=== PATIENT | female | born 1940 | race Caucasian/White ===

== ENCOUNTER → 2022-02-07 09:52 | Outpatient (CLI) | payer MEDICARE, OTHER, SELFPAY ==
--- NOTE | 2022-02-07 | PATH_ITS ---
Note [facility] Accession Number: [id number] TESTS RESULT FLAG UNITS REF RANGE LAB Clinician Provided Cytology Information No. of containers..02 Previously Prepared Cytology Slide 35 Unknown Storage/container code(s) Source: RIGHT THYROID NODULE DIAGNOSIS: RIGHT THYROID NODULE, FINE NEEDLE ASPIRATION. INCONCLUSIVE. BETHESDA CATEGORY III. ATYPIA OF UNDETERMINED SIGNIFICANCE (AUS), SEE COMMENT. COMMENT: EXAMINATION OF THE SMEARS REVEALS A HYPOCELLULAR TO MILDLY CELLULAR ASPIRATE, COMPOSED OF COLLOID AND FEW GROUPS WHERE NUCLEAR ENLARGEMENT, OVERLAPPING, PALLOR AND RARE NUCLEAR MEMBRANE IRREGULARITIES (GROOVES) ARE NOTED. INTRANUCLEAR PSEUDOINCLUSIONS ARE NOT DEFINITELY SEEN. THE RISK OF MALIGNANCY IN THE BETHESDA CATEGORY III IS 5-15%. ADDITIONAL MOLECULAR STUDIES WILL BE PERFORMED ON THE SUBMITTED RNA VIAL FOR FURTHER CHARACTERIZATION. Pathologist ICD10: 01 E04.1 Clinical history: 01 FINDINGS: Right thyroid measures 5.0 x 1.7 x 1.2 cm. Left ovary measures 4.7 x 1.0 x 1.0 cm. The isthmus is 0.3 cm jn thickness. A right inferior thyroid nodule measures 1.8 x x 1.4 cm. The nodule is solid, hypoecholq and wider than tall with smooth margins and macroscopic calcification. (TR4 Moderately Suspicious) The palpable abnormality corresponds to the left submandibular gland, which contains a heterogeneously hypoechoic solid nodule measuring 2.3 x 1.3 x 1.9 cm with vascularity present. IMPRESSION: 1.Palpable abnormality corresponds to a circumscribed heterogeneous hypoechoic mass in the left submandibular gland. Differential considerations include benign and malignant masses. Recommend further characterization with contrast-enhanced MRI or CT of the neck. 2.Moderately suspicious right Inferior thyroid nodule measuring 1.8 cm. Recommend fine needle aspiration for further evaluation. Signed out by: Kyle Wolf MD, Pathologist NPI- [id number] Performed by: Devonte Jackson, Cable Technician ([facility]) Gross description: 30 CC, PINK, CLEAR RECIEVED: IN CYTOLYT WITH 6 ALCOHOL FIXED AND 6 QUICK STAINED SLIDES ALSO 1 RNA VIAL WAS RECEIVED FOR FURTHER TESTING. /VDU 02/08/[address] [place] [address] FLAG LEGEND: L-Low Normal,H-High Normal,LL-Alert Low,HH-Alert High <-Panic Low,>-Panic High,A-Abnormal,AA-Critical Abnormal Performed at: 01 =Z [facility] [address] [place] [address], [place] [address] David Loera MD, Performed at: 01 [facility] [address] [place] [address], [place], [place] [id number] MD David Loera MD Phone: [phone]
--- NOTE | 2022-02-07 10:07 | DI.US.S_ITS ---
PROCEDURE: US FINE NEEDLE ASPIRATION INDICATIONS: Nontoxic single thyroid nodule TECHNIQUE: The indications, alternatives, benefits, risks, and complications of the procedure were explained to the patient. Written informed consent was obtained and placed in the chart. The thyroid region was examined sonographically and a site was chosen for ultrasound guided percutaneous sampling. The skin was prepared and draped in the usual fashion, and anesthetized with 1% lidocaine infiltrated from the skin down to the thyroid gland. Multiple passes were then performed, with contents emptied into an appropriate pathology specimen container. A bandage was applied to the area of access at completion of the study. COMPARISON: None. FINDINGS: Location(s) of lesion(s) sampled: Right inferior pole [place]: 25 gauge hypodermic needles. Number of passes: 6 Medications: 1% lidocaine for local anaesthesia. Complications: None. IMPRESSION: Successful ultrasound-guided thyroid nodule fine needle aspiration, with cytology results pending. Please see chart below for management recommendations based on cytology results. [facility] ReportingRecommendationsNon-diagnostic* Repeat US-guided FNA, with on-site cytology evaluation if possible. * Repeated non-diagnostic nodules without high suspicion US features: close observation vs surgical consult. * Consider surgery if nodule has high suspicion US features, grows >20% in 2 dimensions on followup, or patient has clinical risk factors for malignancy. Benign* If nodule has high suspicion US features: repeat US and FNA within 12 months. * If nodule has low to intermediate suspicion US features: repeat US at 12-24 months. If nodule grows (20% increase in at least 2 dimensions, with minimal increase of 2 mm or >50% change in volume), or development of new suspicious US features, then repeat FNA or continue followup. * If nodule has very low suspicion US features: followup US at >24 months. Atypia of undetermined significance, follicular lesion of undetermined significanceRepeat FNA, molecular testing, followup US, or surgical consult.Follicular neoplasm, suspicious for follicular neoplasmSurgical consult; also consider molecular testing. Suspicious for malignancySurgical consult.MalignantSurgical consult. Dictated by: Paulino Mcclendon M.D. on 02/08/2022 at 16:06 Approved by: Paulino Mcclendon M.D. on 02/08/2022 at 16:07
== END ==
PROVIDERS: PCP Registered Nurse; Referring Provider Registered Nurse; Visit Provider Registered Nurse
DX: E04.1 Nontoxic single thyroid nodule (principal)
CPT/HCPCS: 10005

== ENCOUNTER 2024-08-20 12:02 | Outpatient (CLI) | payer MEDICARE, OTHER, SELFPAY ==
[2024-08-20] VITALS (10 sets, daily range): BP systolic 138–163; BP diastolic 70–88; PULSE 89–99; RESP 14–20; TEMP 36.2; O2SAT 92–99
--- NOTE | 2024-08-20 | PATH_ITS ---
[facility] Accession Number: [id number] No. of containers..02 Tissue 04 Unknown Storage/container code(s) . 01 Material submitted: . PART A: bone marrow - BONE MARROW ASPIRATION PART B: bone marrow - BONE MARROW CORE . 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 - Hypercellular marrow for the age (95% due to marrow infiltration by CLL/SLL). - No increased blasts seen (less than 1%). - Iron is present, and no ring sideroblasts seen. - Mild focal increased reticulin fibrosis, focal MF1. - Chromosomal analysis test is pending. 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 - See comment. . 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 No aberrant T-cell populations identified. No increased or definite aberrant blast population identified. (see flow report for more details [phone]). -- A prior peripheral blood flow cytometry in 05/21/2024 confirmed the diagnosis of CLL/SLL with absolute count of monotypic, CD5 positive B-cells of 9.9 k/uL. 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 FISH for CLL panel shows: CLL RELATED CLONE DETECTED (62% OF NUCLEI POSITIVE FOR TRISOMY 12) SEE FULL REPORT For additional cytogenetic findings: LCLS SPECIMEN NUMBER: [id number] Correlation with pending chromosomal analysis is recommended and will be reported in addendum. TXN 08/26/2024 1252 Local . 01 Electronically signed: . Fe Palma MD, Pathologist NPI- [id number] . 01 Gross description: . A. Received in formalin with two identifiers and no site on jar, are multiple red-brown fragments and hemorrhagic material aggregating to 0.3 x 0.2 x 0.1 cm. Filtered and submtited entirely in cassette A1. B. Received in formalin with two identifiers and no site on jar, are three cortes needle cores of osseous tissue ranging from 0.3 to 0.7 cm in length by 0.2 cm in diameter. Submitted entirely in cassette B1 following decalcification in Immunocal. ([id number]) /SAQIB 08/21/2024 0946 Local . 01 Microscopic: . 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 . - PERIPHERAL BLOOD SMEAR: No accompanied peripheral smear is received. No current CBC is received or found in our system. . - BONE MARROW ASPIRATE SMEARS PREPARATION: The aspirates are cellular, specular, and adequate for morphologic examination and shows. Predominant lymphocytosis with rare hematopoietic elements. Lymphocytes are small and mature. . . - BONE MARROW ASPIRATE SMEAR MANUAL DIFFERENTIAL (200 CELLS): . Shows 98% small lymphocytes with mature clumped chromatin. 1% neutrophils, 1% eosinophils. - BONE MARROW BIOPSY AND CLOT: Adequate and shows similar findings including small size mature lymphocytes with diffuse infiltration and rare background of hematopoietic elements. Cellularity: 95% occupied by small lymphocytes (95% of marrow cellularity) Megakaryocytes are present and focally increased with unremarkable morphology. -- IMMUNOHISTOCHEMICAL STAINS ARE PERFORMED ON CLOT AND CORE BIOPSY WITH APPROPRIATE CONTROLS: The atypical lymphocytes infiltration is composed of small size B cells with scattered intermixed T cells and have CLL/SLL immunohistochemical profile, the B cells are: POSITIVE for: CD20 (weak expression), PAX-5, CD5, and LEF1. NEGATIVE for: Cyclin D1. CD3 and CD5 highlight scattered unremarkable T cells. CD34 shows no increased in blasts population <1% CD71 highlights decreased residual erythroid elements. CD15 highlights decreased residual myeloid elements. FACTORVIII highlights megakaryocytes with unremarkable morphology. - SPECIAL STAINS PERFORMED ON CLOT, AND CORE BIOPSY WITH APPROPRIATE CONTROLS: Iron special stain (clot): Present with no increased ring sideroblasts. Reticulin special stain (core biopsy): Mild focal increased reticulin fibrosis MF1 per the WHO5th edition criteria. Technical Note: This test was developed, and the performance characteristics were validated by [facility]. It has not been cleared or approved by the Food and Drug Administration. . 01 Pathologist provided ICD-10: C91.10 . 01 CPT . 912888, 550468, T44695, M72653, 050434, 04999, 820908, [id number] Specimen Comment: A courtesy copy of this report has been sent to [phone] Performed at: [address] [address], [place], [place] [id number] MD David Loera MD Phone: [phone]
--- NOTE | 2024-08-20 12:03 | DI.CT.S_ITS ---
PROCEDURE: CT BIOPSY BONE DEEP Sedation analgesia for 45 minutes. INDICATIONS: CLL VS LYMPHOMA TECHNIQUE: The indications, alternatives, benefits, risks, and possible complications of the procedure were communicated to the patient. Informed written consent from the patient was obtained and placed in the chart. Continuous EKG and hemodynamic monitoring was started by trained personnel. The patient was brought to the CT suite and swine genetics researcher spiral CT imaging was performed with localization grid. The appropriate site for percutaneous access to the biopsy target was marked, was prepped and draped sterilely, and was infused with local anaesthesia. Under CT guidance, a core biopsy trocar and needle set was advanced to the biopsy target, and specimen(s) were obtained. The trocar and needle were then removed, and the patient was sent for post-procedure monitoring. COMPARISON: None. FINDINGS: Biopsy site: Right iliac bone Needle: 11 gauge biopsy needle Number of passes: 1 Medications: 15 cc of 2 percent lidocaine subcutaneously and into the deep tissues. Patient preferred not to have conscious sedation. Complications: None. IMPRESSION: Successful CT-guided biopsy of right iliac bone as noted above. Dictated by: Dwayne Partida M.D. on 08/20/2024 at 16:18 Approved by: Dwayne Partida M.D. on 08/20/2024 at 16:20
[2024-08-20 12:51] LABS: Hematocrit 33.6 % (36-46); Hemoglobin 11.3 g/dL (12.0-16.0); Mean Corpuscular HGB Conc 33.6 % (30-36); Mean Corpuscular Volume 89.3 fL (80-100); Platelet Count 212 X10^3/uL (150-400); Red Blood Cell Count 3.77 X10^6/uL (4.0-5.2); Red Cell Distribution Width 14.7 % (11.6-14.8)
[2024-08-20 12:57] LABS: INR 1.3 (0.9-1.3); Prothrombin Time 15.4 SECONDS (9.4-12.5)
[2024-08-20] MEDS: LIDOCAINE 2% INJ MDV 20ML 40 ML INJ (14:57)
== END 2024-08-20 14:45 | disposition home or self-care (01) ==
PROVIDERS: Radiology Diagnostic Radiology; PCP Registered Nurse; Referring Provider Internal Medicine Medical Oncology; Visit Provider Internal Medicine Medical Oncology
DX: C91.10 Chronic lymphocytic leukemia of B-cell type not having achieved remission; C85.90 Non-Hodgkin lymphoma, unspecified, unspecified site
CPT/HCPCS: 20225; 77012; 85027; 85610; J2250; J3010